=== PATIENT | female | born 1960 | race African-American/Black ===

== ENCOUNTER 2021-03-19 05:41 | Observation (INO) | payer OTHER ==
--- NOTE | 2021-03-19 05:54 | ED ---
Chest Pain HPI - General Stated Complaint: chest pain, arm pain Time Seen by Provider: 03/19/21 05:53 Source: RN notes reviewed, old records reviewed Mode of arrival: EMS Limitations: no limitations - History of Present Illness MD Complaint: chest pain -: hour(s) Onset: during rest Pain Location: left chest Pain Radiation: LUE Severity: moderate Severity scale (1-10): 5 Quality: tightness Consistency: constant Improves With: nothing Anginal Symptoms: dyspnea Other Symptoms: palpitations Treatments Prior to Arrival: none - Related Data Allergies Allergy/AdvReac Type Severity Reaction Status Date / Time No Known Allergies Allergy Verified 03/19/21 05:59 Review of Systems ROS Statement: Those systems with pertinent positive or pertinent negative responses have been documented in the HPI. ROS Other: All systems not noted in ROS Statement are negative. EKG Findings - EKG Comments: EKG Findings:: EKG shows sinus a 91 CT 136 QRS 72 QTC 400 General Exam General appearance: alert, in no apparent distress Head exam: Present: atraumatic, normocephalic, normal inspection Eye exam: Present: normal appearance, PERRL, EOMI. Absent: scleral icterus, conjunctival injection, periorbital swelling ENT exam: Present: normal exam, mucous membranes moist Neck exam: Present: normal inspection. Absent: tenderness, meningismus, lymphadenopathy Respiratory exam: Present: normal lung sounds bilaterally. Absent: respiratory distress, wheezes, rales, rhonchi, stridor Cardiovascular Exam: Present: regular rate, normal rhythm, normal heart sounds. Absent: systolic murmur, diastolic murmur, rubs, gallop, clicks GI/Abdominal exam: Present: soft, normal bowel sounds. Absent: distended, tenderness, guarding, rebound, rigid Extremities exam: Present: normal inspection, full ROM, normal capillary refill. Absent: tenderness, pedal edema, joint swelling, calf tenderness Back exam: Present: normal inspection Neurological exam: Present: alert, oriented X3, CN II-XII intact Psychiatric exam: Present: normal affect, normal mood Skin exam: Present: warm, dry, intact, normal color. Absent: rash Course Vital Signs 03/19/21 03/19/21 05:43 06:03 Temperature 97.9 F Pulse Rate 90 Pulse Rate [ 90 Analytical Chemist ] Respiratory 18 Rate Blood Pressure 146/99 O2 Sat by Pulse 99 Oximetry Disposition Referrals: Nonstaff,Physician [Primary Care Provider] - 1-2 days
[2021-03-19 06:13] LABS: Basophils % (A) 0 %; Eosinophils # (A) 0.1 k/uL (0-0.7); Eosinophils % (A) 1 %; HCT 44.1 % (34.0-46.0); HGB 14.1 gm/dL (11.4-16.0); Lymphocytes # (A) 3.4 k/uL (1.0-4.8); Lymphocytes % (A) 33 %; MCH 31.1 pg (25.0-35.0); MCHC 31.9 g/dL (31.0-37.0); MCV 97.5 fL (80.0-100.0); Mean Platelet Volume 8.2; Monocytes # (A) 0.6 k/uL (0-1.0); Monocytes % (A) 5 %; Neutrophils % (A) 58 %; Platelet Count 359 k/uL (150-450); RBC 4.52 m/uL (3.80-5.40); RDW 12.7 % (11.5-15.5); WBC 10.3 k/uL (3.8-10.6)
[2021-03-19 06:32] LABS: ALT 15 U/L (4-34); AST 21 U/L (14-36); African American GFR (CKD) >90 (>60 ml/min/1.73 sqM); Albumin 4.4 g/dL (3.5-5.0); Alkaline Phosphatase 70 U/L (38-126); Anion Gap 10 mmol/L; Blood Urea Nitrogen 12 mg/dL (7-17); Calcium 10.1 mg/dL (8.4-10.2); Carbon Dioxide 21 mmol/L (22-30); Chloride 109 mmol/L (98-107); Glucose 107 mg/dL (74-99); Lipase 46 U/L (23-300); Magnesium 2.1 mg/dL (1.6-2.3); Non-African American GFR(CKD) >90 (>60 ml/min/1.73 sqM); Potassium 4.3 mmol/L (3.5-5.1); Sodium 140 mmol/L (137-145); Total Bilirubin 0.7 mg/dL (0.2-1.3); Total Protein 7.5 g/dL (6.3-8.2)
--- NOTE | 2021-03-19 06:40 | XR ---
EXAMINATION TYPE: XR chest 2V DATE OF EXAM: 03/19/2021 COMPARISON: NONE HISTORY: Chest pain TECHNIQUE: 2 views FINDINGS: Heart and mediastinum are normal. There is some mild patchy atelectasis at the lung bases. There are no hilar masses. There are chest leads. Bony thorax is intact. IMPRESSION: There is some mild atelectasis at the lung bases. Normal heart.
[2021-03-19 06:44] LABS: Partial Thromboplastin Time 26.2 sec (22.0-30.0); Prothrombin Time 10.6 sec (9.0-12.0)
[2021-03-19] MEDS ORDERED: NITROGLYCERIN SL TABS 0.4 MG TAB SUBLINGUAL PRN (07:11)
[2021-03-19] MEDS ORDERED: ASPIRIN 81 MG PO STA (07:11)
--- NOTE | 2021-03-19 08:35 | CT ---
EXAMINATION TYPE: CT angio chest DATE OF EXAM: 03/19/2021 8:12 AM COMPARISON: Chest x-ray earlier today. HISTORY: Chest pain radiating down both arms. CT DLP: 271 mGycm Automated exposure control for dose reduction was used. CONTRAST: CTA scan of the thorax is performed with IV Contrast, patient injected with 90 mL of Isovue 370, pulm onary embolism protocol. MIP images are created and reviewed. FINDINGS: LUNGS: There are tiny right greater than left pleural effusions. Some respiratory motion artifact deg radation seen making evaluation suboptimal for subcentimeter nodules. Focal left lingular linear scar ring and/or atelectasis. No pneumothorax seen bilaterally. No suspicious focal consolidation. MEDIASTINUM: There is satisfactory enhancement of the pulmonary artery and its branches, there is no CT evidence for pulmonary embolism. Satisfactory enhancement of the thoracic aorta without aneurysm o r dissection. There are no greater than 1 cm hilar or mediastinal lymph nodes. No pericardial effus ion is seen. OTHER: No additional significant abnormality is seen. IMPRESSION: No CT evidence for acute pulmonary embolism. No suspicious acute pulmonary infiltrate. Ti ny right greater than left pleural effusions.
[2021-03-19] MEDS ORDERED: METOPROLOL TARTRATE 25 MG TAB PO SCH (09:00)
[2021-03-19] MEDS ORDERED: ALBUTEROL NEBULIZED 2.5 MG/3 ML INHALATION PRN (10:00)
[2021-03-19] MEDS ORDERED: IBUPROFEN 600 MG TAB PO PRN (10:00)
[2021-03-19] MEDS ORDERED: FLUTICASONE 50MCG/SPRAY NASAL 16GM EA NOSTRIL PRN (10:00)
[2021-03-19] MEDS ORDERED: ACETAMINOPHEN TAB 325 MG TAB PO PRN (10:00)
[2021-03-19] MEDS ORDERED: NON FORMULARY DRUG (Calcium/Magnesium/Zinc [Calcium-Magnesium-Zinc Tablet] 1 EACH Tablet) PO PRN (10:00)
--- NOTE | 2021-03-19 10:05 | P.HPIM ---
History of Present Illness H&P Date: 03/19/21 This is a 60-year-old female with past medical history significant for polysubstance abuse including heroin Presented to the emergency room with chest pain. Patient was admitted at [facility] for rehab for the last week or so. She said that she last used heroin or methamphetamine was over a week ago. She started having chest pressure in the middle of her chest radiating to the left shoulder. She rates her pain as 5 out of 10 in severity. There was no nausea or vomiting associated and no diaphoresis. Patient denies any cardiac history. She said that she used to smoke 2-3 cigarettes per day and she quit 2 weeks ago. She denies any cardiac history. No prior stenting STRESS test that she can recall. Review of Systems Review of system: 14 points review of systems were obtained and were negative except to what were mentioned in the HPI. Past Medical History Past Medical History: Asthma, GERD/Reflux History of Any Multi-Drug Resistant Organisms: None Reported Past Surgical History: No Surgical Hx Reported Past Psychological History: ADD/ADHD, Anxiety, Bipolar, PTSD Smoking Status: Current some day smoker Past Alcohol Use History: Occasional Past Drug Use History: Cocaine, Heroin, IV Drug Use Medications and Allergies Home Medications Medication Instructions Recorded Confirmed Type Acetaminophen [Tylenol 8 Hour] 650 mg PO Q4H PRN 03/19/21 03/19/21 History Albuterol Nebulized [Ventolin 2.5 mg INHALATION RT-TID PRN 03/19/21 03/19/21 History Nebulized] Albuterol Sulfate [Proair Hfa] 2 puff INHALATION RT-TID 03/19/21 03/19/21 History Calcium/Magnesium/Zinc 1 tab PO TID PRN 03/19/21 03/19/21 History [Yqcafcf-Kzdhrdqih-Uczc Tablet] Chlorpheniramine Maleate 4 mg PO Q4H PRN 03/19/21 03/19/21 History [Chlor-Trimeton] DULoxetine HCL [Cymbalta] 20 mg PO DAILY 03/19/21 03/19/21 History Fluticasone Nasal [place] [Flonase 1 spray EA NOSTRIL DAILY PRN 03/19/21 03/19/21 History Nasal [place]] Ibuprofen [Motrin Ib] 600 mg PO Q6H PRN 03/19/21 03/19/21 History Ibuprofen [Motrin] 600 mg PO Q8HR PRN 03/19/21 03/19/21 History Loperamide HCl [Imodium A-D] 4 mg PO QID PRN 03/19/21 03/19/21 History Omeprazole 20 mg PO DAILY 03/19/21 03/19/21 History QUEtiapine [SEROquel] 25 mg PO DAILY 03/19/21 03/19/21 History QUEtiapine [SEROquel] 200 mg PO HS 03/19/21 03/19/21 History Zofran Unknown Dose 4 mg PO Q6H PRN 03/19/21 03/19/21 History Allergies Allergy/AdvReac Type Severity Reaction Status Date / Time No Known Allergies Allergy Verified 03/19/21 08:15 Physical Exam Vitals: Vital Signs Temp Pulse Pulse Resp BP Pulse Ox 03/19/21 08:10 81 18 140/81 100 03/19/21 06:03 90 03/19/21 05:43 97.9 F 90 18 146/99 99 Intake and Output 03/18/21 03/19/21 03/19/21 22:59 06:59 14:59 Other: Weight 80.739 kg General: The patient is awake and alert, in no distress Eye: there is normal conjunctiva bilaterally. Neck: The neck is supple, there is no JVD. Cardiovascular: Normal S1-S2, no S3-S4, no murmurs. Respiratory: Lungs clear to auscultation bilaterally Gastrointestinal: Abdomen is soft, nontender Musculoskeletal: There is no pedal edema. Neurological:. Speech is normal. Skin: Skin is warm and dry Results CBC & Chem 7: 03/19/21 05:47 03/19/21 05:47 Labs: Abnormal Lab Results - Last 24 Hours (Table) 03/19/21 03/19/21 Range/Units 05:47 05:47 D-Dimer 0.66 H (<0.60) mg/L FEU Chloride 109 H (98-107) mmol/L Carbon Dioxide 21 L (22-30) mmol/L Glucose 107 H (74-99) mg/dL Assessment and Plan Assessment: 1. Chest pain 2. History of polysubstance abuse including heroin and methamphetamine currently at [facility] for rehab 3. Underlying asthma with no evidence of exacerbation 4. Tobacco abuse, quit 2 weeks ago Today, I reviewed her medication list and lab work results. Twelve-lead EKG in the ER showed no acute ischemic changes. Patient had IV elevated d-dimer level of the CT angiogram showed no evidence of PE. We will continue content strategist and 10 troponin. Cardiology consulted for further evaluation. Consider cardiac stress testing.
--- NOTE | 2021-03-19 11:04 | P.CRDCN ---
History of Present Illness Consult date: 03/19/21 History of present illness: This is a 60-year-old female with a history of polysubstance abuse including heroin, who was in [place] for rehab recently. Patient is also a smoker. She presented to the emergency room with complaints of chest pain. When asked about the nature of the chest pain. She claimed the pain isn't right-sided the chest and in the shoulder area. She has extreme tenderness in that area. The pain increases on deep breathing and also movements of the chest. She is having heart time turning from one side to the other. Her EKG is normal. Her first cardiac enzyme is within normal limits. Her chest pain is very atypical and seemed to be muscular skeletal. We'll get another couple of troponins and an echocardiogram. If those are Normal, I Recommend That Patient Be Treated Symptomatically. No History of Previous Myocardial Infarction. Her Stroke. No History of Previous Stent Placement. Review of Systems As per the chart Past Medical History Past Medical History: Asthma, GERD/Reflux History of Any Multi-Drug Resistant Organisms: None Reported Past Surgical History: No Surgical Hx Reported Past Psychological History: ADD/ADHD, Anxiety, Bipolar, PTSD Smoking Status: Current some day smoker Past Alcohol Use History: Occasional Past Drug Use History: Cocaine, Heroin, IV Drug Use Medications and Allergies Home Medications Medication Instructions Recorded Confirmed Type Acetaminophen [Tylenol 8 Hour] 650 mg PO Q4H PRN 03/19/21 03/19/21 History Albuterol Nebulized [Ventolin 2.5 mg INHALATION RT-TID PRN 03/19/21 03/19/21 History Nebulized] Albuterol Sulfate [Proair Hfa] 2 puff INHALATION RT-TID 03/19/21 03/19/21 History Calcium/Magnesium/Zinc 1 tab PO TID PRN 03/19/21 03/19/21 History [Lrpkvwe-Kulelrhgh-Sbbu Tablet] Chlorpheniramine Maleate 4 mg PO Q4H PRN 03/19/21 03/19/21 History [Chlor-Trimeton] DULoxetine HCL [Cymbalta] 20 mg PO DAILY 03/19/21 03/19/21 History Fluticasone Nasal [place] [Flonase 1 spray EA NOSTRIL DAILY PRN 03/19/21 03/19/21 History Nasal [place]] Ibuprofen [Motrin Ib] 600 mg PO Q6H PRN 03/19/21 03/19/21 History Ibuprofen [Motrin] 600 mg PO Q8HR PRN 03/19/21 03/19/21 History Loperamide HCl [Imodium A-D] 4 mg PO QID PRN 03/19/21 03/19/21 History Omeprazole 20 mg PO DAILY 03/19/21 03/19/21 History QUEtiapine [SEROquel] 25 mg PO DAILY 03/19/21 03/19/21 History QUEtiapine [SEROquel] 200 mg PO HS 03/19/21 03/19/21 History Zofran Unknown Dose 4 mg PO Q6H PRN 03/19/21 03/19/21 History Allergies Allergy/AdvReac Type Severity Reaction Status Date / Time No Known Allergies Allergy Verified 03/19/21 08:15 Physical Exam Vitals: Vital Signs Temp Pulse Pulse Resp BP Pulse Ox 03/19/21 08:10 81 18 140/81 100 03/19/21 06:03 90 03/19/21 05:43 97.9 F 90 18 146/99 99 Intake and Output 03/18/21 03/19/21 03/19/21 22:59 06:59 14:59 Other: Weight 80.739 kg GENERAL EXAM: Patient is alert and oriented and doesn't appear to be in any acute distress HEENT: Normocephalic. Normal reaction of pupils, equal size, normal range of extraocular motion. No erythema or exudates in the throat. NECK: No masses, no nuchal rigidity. CHEST: No chest wall deformity. LUNGS: Equal air entry with no crackles or wheeze. Scattered rhonchi HEART: S1 and S2 normal with no audible mumurs or gallops. Regular rhythm, femorals equal on both sides.. ABDOMEN: No hepatosplenomegaly, normal bowel sounds, no guarding or rigidity. SKIN: No rashes CENTRAL NERVOUS SYSTEM: No focal deficits. EXTREMITIES: No cyanosis, clubbing or edema. Results 03/19/21 05:47 03/19/21 05:47 Cardiac Enzymes 03/19/21 03/19/21 03/19/21 Range/Units 05:47 05:47 09:28 AST 21 (14-36) U/L Troponin I <0.012 <0.012 (0.000-0.034) ng/mL Coagulation 03/19/21 Range/Units 05:47 PT 10.6 (9.0-12.0) sec APTT 26.2 (22.0-30.0) sec CBC 03/19/21 Range/Units 05:47 WBC 10.3 (3.8-10.6) k/uL RBC 4.52 (3.80-5.40) m/uL Hgb 14.1 (11.4-16.0) gm/dL Hct 44.1 (34.0-46.0) % Plt Count 359 (150-450) k/uL Comprehensive Metabolic Panel 03/19/21 Range/Units 05:47 Sodium 140 (137-145) mmol/L Potassium 4.3 (3.5-5.1) mmol/L Chloride 109 H (98-107) mmol/L Carbon Dioxide 21 L (22-30) mmol/L BUN 12 (7-17) mg/dL Creatinine 0.67 (0.52-1.04) mg/dL Glucose 107 H (74-99) mg/dL Calcium 10.1 (8.4-10.2) mg/dL AST 21 (14-36) U/L ALT 15 (4-34) U/L Alkaline Phosphatase 70 (38-126) U/L Total Protein 7.5 (6.3-8.2) g/dL Albumin 4.4 (3.5-5.0) g/dL Current Medications Generic Name Dose Route Start Last Admin Trade Name Freq PRN Reason Stop Dose Admin Acetaminophen 650 mg 03/19/21 10:00 Acetaminophen Tab 325 Mg Tab PO Q4H PRN Pain or Fever > 100.5 Albuterol Sulfate 2.5 mg 03/19/21 10:00 Albuterol Nebulized 2.5 Mg/3 Ml INHALATION RT-TID PRN Shortness Of Breath Albuterol Sulfate 2 puff 03/19/21 13:00 Albuterol Hfa Inhaler INHALATION RT-TID TETO Aspirin 325 mg 03/20/21 09:00 Aspirin 325 Mg Tab PO DAILY TETO Duloxetine HCl 20 mg 03/20/21 09:00 Duloxetine Hcl 20 Mg Capsule.Dr PO DAILY TETO Fluticasone Propionate 1 spray 03/19/21 10:00 Fluticasone 50mcg/[place] Nasal 16gm EA NOSTRIL DAILY PRN Congestion Ibuprofen 600 mg 03/19/21 10:00 Ibuprofen 600 Mg Tab PO Q8HR PRN Pain or Fever > 100.5 Morphine Sulfate 4 mg 03/19/21 07:11 Morphine Sulfate 4 Mg/Ml Syringe IV Q4HR PRN Chest Pain Nitroglycerin 0.4 mg 03/19/21 07:11 Nitroglycerin Sl Tabs 0.4 Mg Tab SUBLINGUAL Q5M PRN Chest Pain Pantoprazole Sodium 40 mg 03/20/21 07:30 Pantoprazole 40 Mg Tablet PO DAILY@0730 TETO Quetiapine Fumarate 25 mg 03/20/21 09:00 Quetiapine 25 Mg Tab PO DAILY TETO Quetiapine Fumarate 200 mg 03/19/21 21:00 Quetiapine 200 Mg Tab PO HS TETO Intake and Output 03/18/21 03/19/21 03/19/21 22:59 06:59 14:59 Other: Weight 80.739 kg 03/19/21 05:47 03/19/21 05:47 EKG Interpretations (text) Sinus rhythm Assessment and Plan (1) Chest pain Current Visit: Yes Status: Acute Code(s): R07.9 - CHEST PAIN, UNSPECIFIED SNOMED Code(s): 53188106 (2) History of asthma Current Visit: Yes Status: Acute Code(s): Z87.09 - PERSONAL HISTORY OF OTHER DISEASES OF THE RESPIRATORY SYSTEM SNOMED Code(s): 458073095 (3) Polysubstance abuse Current Visit: Yes Status: Acute Code(s): F19.10 - OTHER PSYCHOACTIVE SUBSTANCE ABUSE, UNCOMPLICATED SNOMED Code(s): 910290266 (4) History of smoking Current Visit: Yes Status: Acute Code(s): Z87.891 - PERSONAL HISTORY OF NICOTINE DEPENDENCE SNOMED Code(s): 900566320 Plan: Her chest pains are very atypical and muscular skeletal. If cardiac enzymes and echo studies are normal, patient could be treated symptomatically. Thank you
[2021-03-19] MEDS: ALBUTEROL HFA INHALER INHALATION SCH ×2 (13:44→19:59)
[2021-03-19] MEDS ORDERED: QUEtiapine 200 MG TAB PO SCH (21:00)
[2021-03-20] MEDS: MORPHINE SULFATE 4 MG/ML SYRINGE IV PRN ×2 (00:47→04:02)
[2021-03-20] MEDS: ALBUTEROL HFA INHALER INHALATION SCH ×2 (05:19→11:35)
[2021-03-20] MEDS ORDERED: PANTOPRAZOLE 40 MG TABLET PO SCH (07:30)
[2021-03-20] MEDS ORDERED: DULoxetine HCL 20 MG CAPSULE.DR PO SCH (09:00)
[2021-03-20] MEDS ORDERED: ASPIRIN 325 MG TAB PO SCH (09:00)
[2021-03-20] MEDS ORDERED: QUEtiapine 25 MG TAB PO SCH (09:00)
[2021-03-20 09:52] LABS: Chol/HDL Ratio 2.87 Ratio; HDL Cholesterol 70.1 mg/dL (40.00-60.00); LDL Cholesterol,Calculated 113.9 mg/dL (0.0-131.0); Triglycerides 84.8 mg/dL (0.00-149.00); VLDL Calculation 16.96 mg/dL (5.00-40.00)
[2021-03-20] MEDS ORDERED: HYDROcodone/APAP 5-325MG 1 EACH TAB PO PRN (12:48)
--- NOTE | 2021-03-20 12:50 | P.PN ---
Subjective Patient is doing well today. No acute events overnight. Objective - Vital Signs Vital signs: Vital Signs Temp 98.3 F 03/20/21 08:34 Pulse 85 03/20/21 08:34 Resp 14 03/20/21 08:34 BP 136/88 03/20/21 08:34 Pulse Ox 98 03/20/21 08:34 Intake & Output 03/19/21 03/20/21 03/20/21 18:59 06:59 18:59 Weight 80.739 kg Other: Voiding Method Toilet # Voids 1 - Exam General: The patient is awake and alert, in no distress Eye: there is normal conjunctiva bilaterally. Neck: The neck is supple, there is no JVD. Cardiovascular: Normal S1-S2, no S3-S4, no murmurs. Respiratory: Lungs clear to auscultation bilaterally Gastrointestinal: Abdomen is soft, nontender Musculoskeletal: There is no pedal edema. Neurological:. Speech is normal. Skin: Skin is warm and dry - Labs CBC & Chem 7: 03/19/21 05:47 03/19/21 05:47 Labs: Abnormal Lab Results - Last 24 Hours (Table) 03/20/21 Range/Units 06:27 Cholesterol 201.00 H (0.00-200.00) mg/dL HDL Cholesterol 70.10 H (40.00-60.00) mg/dL Assessment and Plan Assessment: 1. Chest pain, ACS ruled out. Patient was seen and evaluated by cardiology. Echocardiogram ordered. 2. History of polysubstance abuse including heroin and methamphetamine currently at [facility] for rehab 3. Underlying asthma with no evidence of exacerbation 4. Tobacco abuse, quit 2 weeks ago Today, I reviewed her medication list and lab work results. Twelve-lead EKG in the ER showed no acute ischemic changes. Serial troponin negative. Patient had IV elevated d-dimer level of the CT angiogram showed no evidence of PE. Echocardiogram done today awaiting report Discharge planning to [facility]. Nursing staff called 6 times with no response. Patient will most likely be here until Monday to be accepted and transported back to [facility]
[2021-03-20 14:22] VITALS: BP 135/86; PULSE 78; RESP 18; TEMP 98.6
--- NOTE | 2021-03-20 15:00 | ECHOF ---
Referral Reason:chest pain MEASUREMENTS -------- HEIGHT: 157.5 cm WEIGHT: 80.7 kg BP: IVSd: 1.3 cm (0.6 - 1.1) LVIDd: 2.6 cm (3.9 - 5.3) LVPWd: 1.3 cm (0.6 - 1.1) EDV(Teich): 24 ml IVSs: 1.5 cm LVIDs: 1.2 cm LVPWs: 1.7 cm %IVS Thck: 13 % ESV(Teich): 3 ml EF(Teich): 87 % %FS: 55 % SV(Teich): 21 ml RVIDd: 2.4 cm (< 3.3) IVC: 14.22 mm LALs A4C: 3.8 cm LAAs A4C: 9.2 cm LAESV A-L A4C: 19 ml LAESV MOD A4C: 19 ml LALs A2C: 3.6 cm LAAs A2C: 6.8 cm LAESV A-L A2C: 11 ml LAESV MOD A2C: 10 ml LAESV(A-L): 15 ml LAESV Index (A-L): 8.24 ml/m Ao Diam: 3.0 cm (2.0 - 3.7) LA Diam: 2.7 cm (2.7 - 3.8) AV Cusp: 1.8 cm (1.5 - 2.6) EPSS: 0.5 cm MV E Serjio: 0.52 m/s MV DecT: 249 ms MV Dec [place]: 2.1 m/s MV A Serjio: 0.76 m/s MV E/A Ratio: 0.69 MV PHT: 72 ms MR Vmax: 1.03 m/s MR maxP.27 mmHg AV Vmax: 1.08 m/s AV maxP.64 mmHg TR Vmax: 1.75 m/s TR maxP.26 mmHg RAP: 5.00 mmHg RVSP: 17.26 mmHg MV EF SLOPE: 50.15 mm/s (70 - 150) MV EXCURSION: 13.54 mm (> 18.000) FINDINGS -------- This was a technically good study. The left ventricular size is normal. There is mild concentric left ventricular hypertrophy. Overa ll left ventricular systolic function is normal with, an EF between 55 - 60 %. The diastolic fillin g pattern is normal for the age of the patient 6.27. The right ventricle is normal in size. The left atrial size is normal. Normal LA size by volume 22+/-6 ml/m2. The right atrial size is normal. The aortic valve is trileaflet and appears structurally normal. The mitral valve is normal. There is trace mitral regurgitation. The tricuspid valve appears structurally normal. Trace tricuspid regurgitation present. Right yumiko tricular systolic pressure is normal at < 35 mmHg. There is no pulmonic regurgitation present. The aortic root size is normal. Normal inferior vena cava with normal inspiratory collapse consistent with estimated right atrial pre ssure of 5 mmHg. There is a trivial pericardial effusion present. CONCLUSIONS -------- 1. The left ventricular size is normal. 2. There is mild concentric left ventricular hypertrophy. 3. Overall left ventricular systolic function is normal with, an EF between 55 - 60 %. 4. The diastolic filling pattern is normal for the age of the patient 6.27 5. There is trace mitral regurgitation. 6. Trace tricuspid regurgitation present. 7. There is a trivial pericardial effusion present. SENIOR ELECTRICAL ENGINEER: Hanh Vasquez RDCS
--- NOTE | 2021-03-21 08:45 | P.DS ---
Providers Date of admission: 03/19/21 07:11 Expected date of discharge: 03/20/21 Attending physician: Chelsi Crouch MD Consults: 03/19/21 07:11 Consult Physician Urgent Consulting Provider: Lynda Contreras Consult Reason/Comments: cp Do you want consulting provider notified?: Yes Primary care physician: Physician Nonstaff Hospital Course: This is a 60-year-old female with past medical history noted below that presented to the emergency room with chest pain. Patient was evaluated and placed on observation. 1. Chest pain, ACS ruled out. Patient was seen and evaluated by cardiology. Echocardiogram showed preserved ejection fraction with no significant valvular abnormalities 2. History of polysubstance abuse including heroin and methamphetamine currently at [facility] for rehab 3. Underlying asthma with no evidence of exacerbation 4. Tobacco abuse, quit 2 weeks ago Twelve-lead EKG in the ER showed no acute ischemic changes. Serial troponin negative. Patient had IV elevated d-dimer level of the CT angiogram showed no evidence of PE. Patient will be discharged back to [facility] today as they finally accepted her General: The patient is awake and alert, in no distress Eye: there is normal conjunctiva bilaterally. Neck: The neck is supple, there is no JVD. Cardiovascular: Normal S1-S2, no S3-S4, no murmurs. Respiratory: Lungs clear to auscultation bilaterally Gastrointestinal: Abdomen is soft, nontender Musculoskeletal: There is no pedal edema. Neurological:. Speech is normal. Skin: Skin is warm and dry Plan - Discharge Summary Discharge Rx Participant: No New Discharge Prescriptions: Continue Acetaminophen [Tylenol 8 Hour] 650 mg PO Q4H PRN PRN Reason: Pain Or Fever > 100.5 QUEtiapine [SEROquel] 25 mg PO DAILY Loperamide HCl [Imodium A-D] 4 mg PO QID PRN PRN Reason: Loose Stool Ibuprofen [Motrin Ib] 600 mg PO Q6H PRN PRN Reason: Pain Or Fever > 100.5 Chlorpheniramine Maleate [Chlor-Trimeton] 4 mg PO Q4H PRN PRN Reason: Allergy Symptoms Albuterol Sulfate [Proair Hfa] 2 puff INHALATION RT-TID Zofran Unknown Dose 4 mg PO Q6H PRN PRN Reason: Nausea QUEtiapine [SEROquel] 200 mg PO HS Calcium/Magnesium/Zinc [Dedxgqs-Usdiqgoki-Ndea Tablet] 1 tab PO TID PRN PRN Reason: CRAMPS Omeprazole 20 mg PO DAILY Ibuprofen [Motrin] 600 mg PO Q8HR PRN PRN Reason: Pain Or Fever > 100.5 Fluticasone Nasal [place] [Flonase Nasal [place]] 1 spray EA NOSTRIL DAILY PRN PRN Reason: Congestion DULoxetine HCL [Cymbalta] 20 mg PO DAILY Albuterol Nebulized [Ventolin Nebulized] 2.5 mg INHALATION RT-TID PRN PRN Reason: Shortness Of Breath Discharge Medication List Acetaminophen [Tylenol 8 Hour] 650 mg PO Q4H PRN 03/19/21 [History] Albuterol Nebulized [Ventolin Nebulized] 2.5 mg INHALATION RT-TID PRN 03/19/21 [History] Albuterol Sulfate [Proair Hfa] 2 puff INHALATION RT-TID 03/19/21 [History] Calcium/Magnesium/Zinc [Lnlwozu-Jmmngqydt-Okrh Tablet] 1 tab PO TID PRN 03/19/21 [History] Chlorpheniramine Maleate [Chlor-Trimeton] 4 mg PO Q4H PRN 03/19/21 [History] DULoxetine HCL [Cymbalta] 20 mg PO DAILY 03/19/21 [History] Fluticasone Nasal [place] [Flonase Nasal [place]] 1 spray EA NOSTRIL DAILY PRN 03/19/21 [History] Ibuprofen [Motrin Ib] 600 mg PO Q6H PRN 03/19/21 [History] Ibuprofen [Motrin] 600 mg PO Q8HR PRN 03/19/21 [History] Loperamide HCl [Imodium A-D] 4 mg PO QID PRN 03/19/21 [History] Omeprazole 20 mg PO DAILY 03/19/21 [History] QUEtiapine [SEROquel] 25 mg PO DAILY 03/19/21 [History] QUEtiapine [SEROquel] 200 mg PO HS 03/19/21 [History] Zofran Unknown Dose 4 mg PO Q6H PRN 03/19/21 [History] Follow up Appointment(s)/Referral(s): Nonstaff,Physician [Primary Care Provider] - 1-2 days Activity/Diet/Wound Care/Special Instructions: activity as tolerated heart healthy diet Discharge Disposition: DC/TRNS INTERMEDIATE CARE FAC
== END 2021-03-20 16:57 ==
LOC: EC 05:41 → 6NMEDSUR 07:11
PROVIDERS: ADMIT Internal Medicine; ATTEND Internal Medicine
DX: R07.89 Other chest pain (principal); R00.2 Palpitations; R79.89 Other specified abnormal findings of blood chemistry; J98.11 Atelectasis; J90 Pleural effusion, not elsewhere classified; J45.909 Unspecified asthma, uncomplicated; K21.9 Gastro-esophageal reflux disease without esophagitis; F31.9 Bipolar disorder, unspecified; F43.10 Post-traumatic stress disorder, unspecified; F41.9 Anxiety disorder, unspecified; F90.9 Attention-deficit hyperactivity disorder, unspecified type; Z79.899 Other long term (current) drug therapy; F11.10 Opioid abuse, uncomplicated; F15.10 Other stimulant abuse, uncomplicated; Z87.891 Personal history of nicotine dependence
CPT/HCPCS: 96376; 96374; 99285; 36415; 94640 ×2; 93005; 93306; 85379; 83880; 80061; 80053; 83690; 83735; 84484; 85025; 85610; 85730; 87635; 71046; 71275; G0378 ×2; J2270; Q9967